=== PATIENT | female | born 1965 | race Caucasian/White ===

== ENCOUNTER 2018-08-24 08:49 | Inpatient (IN) | payer OTHER ==
[2018-08-24] MEDS ORDERED: Sodium Chloride 0.9% 1,000 ML IV ONE ×3 (09:07→23:39)
[2018-08-24] MEDS ORDERED: Morphine Sulfate 4 mg/mL 1mL Syr IV STA (09:08)
--- NOTE | 2018-08-24 09:15 | ED Physician Chart ---
ED Chief Complaint/HPI - Patient Information Date Seen:: 08/24/18 Time Seen:: 09:00 Chief Complaint:: lower abdominal pain History of Present Illness:: Patient developed lower abdominal pain last night at 1900. No vomiting or diarrhea. Patient was started on Keflex 5 days ago for cystitis. She developed increased vaginal discharge 2 days ago which is now improved. Allergies:: Allergies Allergy/AdvReac Type Severity Reaction Status Date / Time codeine Allergy Verified 08/24/18 08:59 Vitals:: Vital Signs - 8 hr 08/24/18 09:00 Temp 99.5 F HR 97 RR 17 BP 140/80 O2 Sat % 97 Historian:: Patient Review:: Nurse's Note Reviewed ED Review of Systems - Review of Systems General/Constitutional: No fever, No chills Skin: No skin lesions Head: No headache Eyes: No loss of vision ENT: No earache Neck: No neck pain, No swelling Cardio Vascular: No chest pain, No palpitations Pulmonary: No SOB GI: No nausea, No vomiting, No diarrhea, Pain G/U: Dysuria Life Skills Specialist: Vaginal discharge Musculoskeletal: No bone or joint pain, No back pain, No muscle pain Psychiatric: No prior psych history Hematopoietic: No bruising Allergic/Immuno: No urticaria Neurological: No syncope, No focal symptoms ED Past Medical History - Past Medical History Past Medical History: No significant medical hx Family History: Diabetes Melitus, HTN Social History: Non Smoker, No Alcohol Surgical History: None Psychiatricy History: None Medication: Reviewed ED Physical Exam - Physical Examination General/Constitutional: Well-developed, well-nourished, Alert, No distress Head: Atraumatic Eyes: Lids, conjuctiva normal, PERRL Skin: Nl inspection, No rash, No skin lesions, No ecchymosis ENMT: External ears, nose nl, Nasal exam nl, Lips, teeth, gums nl, Oropharynx nl , Tonsils nl Neck: No nuchal rigidity Respiratory: Nl effort/Exclusion, Clear to Auscultation Cardio Vascular: RRR, No murmur, gallop, rubs, NL S1 S2 GI: No organomegaly, No hernia, Normal BS's, Nondistended, No mass/bruits Other GI comments:: Diffuse tenderness Extremities: Normal digits & nails Neuro/Psych: Alert/oriented, No focal deficits ED Labs/Radiology/EKG Results - Lab Results Results: Laboratory Results WBC 13.6 Th/cmm (4.8-10.8) H 08/24/18 09:15 RBC 4.31 Mil/cmm (3.80-5.10) 08/24/18 09:15 Hgb 8.9 gm/dL (12-16) L 08/24/18 09:15 Hct 28.8 % (41.0-60) L 08/24/18 09:15 MCV 66.7 fl (81-100) L 08/24/18 09:15 MCH 20.6 pg (27.0-31.0) L 08/24/18 09:15 MCHC Differential 30.9 pg (28.0-36.0) 08/24/18 09:15 RDW 16.9 % (11.5-20.0) 08/24/18 09:15 Plt Count 664 Th/cmm (150-400) H 08/24/18 09:15 MPV 7.2 fl 08/24/18 09:15 Add Manual Diff YES 08/24/18 09:15 Band Neutrophils % 0 % (0-10) 08/24/18 09:15 Neutrophils (Manual) 85 % (40-80) H 08/24/18 09:15 Lymphocytes 11 % (20-50) L 08/24/18 09:15 Monocytes 4 % (2-10) 08/24/18 09:15 Eosinophils 0 % (0-5) 08/24/18 09:15 Basophils 0 % (0-3) 08/24/18 09:15 Platelet Estimate INCREASED PLATELETS (NORMAL) 08/24/18 09:15 Sodium 143 mEq/L (136-145) 08/24/18 09:15 Potassium 3.9 mEq/L (3.5-5.1) 08/24/18 09:15 Chloride 109 mEq/L (98-107) H 08/24/18 09:15 Carbon Dioxide 22.1 mEq/L (21.0-31.0) 08/24/18 09:15 Anion Gap 15.8 (7.0-16.0) 08/24/18 09:15 BUN 19 mg/dL (7-25) 08/24/18 09:15 Creatinine 0.7 mg/dL (0.6-1.2) 08/24/18 09:15 Est GFR ( Amer) > 60.0 ml/min (>90) 08/24/18 09:15 Est GFR (Non-Af Amer) > 60.0 ml/min 08/24/18 09:15 BUN/Creatinine Ratio 27.1 08/24/18 09:15 Glucose 117 mg/dL (70-105) H 08/24/18 09:15 Calcium 8.8 mg/dL (8.6-10.3) 08/24/18 09:15 Magnesium 2.1 mg/dL (1.9-2.7) 08/24/18 09:15 Lipase 12 U/L (11-82) 08/24/18:15 Urine Source MIDSTREAM 08/24/18 09:00 Urine Color YELLOW 08/24/18 09:00 Urine Clarity CLOUDY (CLEAR) H 08/24/18 09:00 Urine pH 6.0 (4.6 - 8.0) 08/24/18 09:00 Ur Specific [place] >= 1.030 (1.005-1.030) 08/24/18 09:00 Urine Protein 100 mg/dL (NEGATIVE) H 08/24/18 09:00 Urine Glucose (UA) NEGATIVE mg/dL (NEGATIVE) 08/24/18 09:00 Urine Ketones NEGATIVE mg/dL (NEGATIVE) 08/24/18 09:00 Urine Blood MODERATE (NEGATIVE) H 08/24/18 09:00 Urine Nitrate NEGATIVE (NEGATIVE) 08/24/18 09:00 Urine Bilirubin NEGATIVE (NEGATIVE) 08/24/18 09:00 Urine Urobilinogen 0.2 E.U./dL (0.2 - 1.0) 08/24/18 09:00 Ur Leukocyte Esterase MODERATE (NEGATIVE) H 08/24/18 09:00 Urine RBC 5-10 /hpf (0-5) H 08/24/18 09:00 Urine WBC 50-100 /hpf (0-5) H 08/24/18 09:00 Ur Epithelial Cells FEW /lpf (FEW) 08/24/18 09:00 Urine Bacteria MODERATE /hpf (NONE SEEN) H 08/24/18 09:00 - Radiology Results Results: CT abdomen and pelvis showed a 20 by 17.6 centimeter pelvic mass probably a large fibroid. The pelvic ultrasound showed a markedly enlarged fibroid uterus. ED Assessment - Assessment General Assessment: I spoke to the french binding folder environmental health technologist for the patient's insurance Dr. Gerard who said she would see if there is an PSYCHODRAMATIST doctor available. So she will accept the patient in transfer. Finally we heard that the patient was accepted to [facility] so I assume Dr. Gerard determined that she could get an OB /VICE PRESIDENT RESIDENTIAL SOLAR SALES doctor to see the patient. ED Septic Shock - . Is Septic Shock (SBP<90, OR Lactate>4 mmol\L) present?: No - <6hrs of presentation: Vital Signs: Vital Signs - 8 hr 08/24/18 09:00 Temp 99.5 F HR 97 RR 17 BP 140/80 O2 Sat % 97 ED Reassessment (Disposition) - Reassessment Reassessment Condition:: Unchanged - Diagnosis Diagnosis:: Leukocytosis; anemia; uterine fibroids; abdominal pain - Patient Disposition Discharge/Transfer:: Acute Care (other hosp) Transport Method:: PRITESH Spoke to:: Dr. Gerard
[2018-08-24 09:20] LABS: URINE SOURCE MIDSTREAM
[2018-08-24 09:38] LABS: URINE BILIRUBIN NEGATIVE (NEGATIVE); URINE BLOOD MODERATE (NEGATIVE); URINE GLUCOSE (UA) NEGATIVE (NEGATIVE); URINE KETONE NEGATIVE (NEGATIVE); URINE LEUKOCYTE ESTERASE MODERATE (NEGATIVE); URINE MICROSCOPIC INDICATED? YES; URINE NITRATE NEGATIVE (NEGATIVE); URINE PROTEIN 100 mg/dL (NEGATIVE); URINE UROBILINOGEN 0.2 E.U./dL (0.2 - 1.0)
[2018-08-24 09:45] LABS: ANION GAP 15.8 (7.0-16.0); BUN - UREA NITROGEN 19 mg/dL (7-25); CALCIUM SERUM 8.8 mg/dL (8.6-10.3); CARBON DIOXIDE 22.1 mEq/L (21.0-31.0); CHLORIDE 109 mEq/L (98-107); CREATININE - SERUM 0.7 mg/dL (0.6-1.2); GFR AFRICAN-AMERICAN > 60.0 ml/min (>90); GFR NON AFRICAN-AMERICAN > 60.0 ml/min; GLUCOSE 117 mg/dL (70-105); MAGNESIUM 2.1 mg/dL (1.9-2.7); POTASSIUM SERUM 3.9 mEq/L (3.5-5.1); SODIUM SERUM 143 mEq/L (136-145)
[2018-08-24 09:51] LABS: HEMOGLOBIN 8.9 gm/dL (12-16)
[2018-08-24 09:57] LABS: HEMATOCRIT 28.8 % (41.0-60); MEAN CORPUSCULAR HEMOGLOBIN 20.6 pg (27.0-31.0); MEAN CORPUSCULAR HGB CONC 30.9 pg (28.0-36.0); MEAN PLATELET VOLUME 7.2 fl; PLATELET COUNT 664 Th/cmm (150-400); RED BLOOD COUNT 4.31 Mil/cmm (3.80-5.10); RED CELL DISTRIBUTION WIDTH 16.9 % (11.5-20.0); WHITE BLOOD COUNT 13.6 Th/cmm (4.8-10.8)
[2018-08-24 10:07] LABS: MEAN CELL VOLUME 66.7 fl (81-100)
[2018-08-24 10:24] LABS: URINE CLARITY CLOUDY (CLEAR); URINE COLOR YELLOW
--- NOTE | 2018-08-24 10:29 | Diagnostic Imaging Report ---
CT abdomen and pelvis without intravenous contrast Indication: Abdominal pain Comparison: None, Technique: Axial images were obtained from the lung bases to the bilateral proximal femurs without IV contrast. Coronal reconstructions were made. total DLP: 605, CTDI12.1 FINDINGS: Hypoventilatory atelectatic changes of the lung bases are noted. Assessment of solid organs is limited due to lack of IV contrast. Mild hepatomegaly is noted. No focal hepatic lesions. No focal splenic lesions. No focal pancreatic or adrenal lesions. No evidence of hydronephrosis or focal renal lesions. There is a very large heterogeneous mass within the pelvis with mass effect upon the regional organs and. This mass measures 20.0 x 17.6 cm and is probably a large fibroid with a extension to the left lateral abdomen. No evidence of bowel obstruction. Moderate stool is noted. No appendicitis. Trace free fluid is noted. Mild prominent pelvic lymph nodes are noted the largest along the right posterior pelvis measuring 1.8 x 1.4 cm (image 74, series 2). Additional mildly prominent left or peritoneal lymph nodes are also noted the largest measuring 1.5 x 1.0 cm (image 49, series 2). Minimal atherosclerosis is noted. Degenerative changes of the spine and pelvis are noted. IMPRESSION: Large pelvic mass probably a large multilobulated fibroid with heterogeneous areas of density. Consider further assessment with ultrasound. Associated mass effect upon the adjacent organs are noted. Mildly surrounding prominent lymph nodes including retroperitoneal and pelvic lymph nodes. Follow-up surveillance is recommended. No evidence of bowel obstruction. Trace fluid in the pelvis. No evidence of acute appendicitis Mild hepatomegaly. Minimal atherosclerosis.
[2018-08-24 10:41] LABS: URINE BACTERIA MODERATE /hpf (NONE SEEN); URINE EPITHELIAL CELLS FEW /lpf (FEW); URINE WBC 50-100 /hpf (0-5)
[2018-08-24 10:55] LABS: BAND NEUTROPHILE 0 % (0-10); BASOPHIL 0 % (0-3); EOSINOPHIL 0 % (0-5); LYMPHOCYTE 11 % (20-50); MONOCYTE 4 % (2-10); NEUTROPHILS 85 % (40-80); PLATELET ESTIMATE INCREASED PLATELETS (NORMAL)
[2018-08-24] MEDS ORDERED: cefTRIAXone 1 GM in Sodium Chloride 0.9% 50 ML IV ONE (11:08)
[2018-08-24] MEDS ORDERED: HYDROmorphone 1 mg/mL 1mL Syr IVP STA ×3 (11:18→22:23)
[2018-08-24] MEDS ORDERED: HYDROmorphone 1 mg/mL 1mL Syr ONE ×3 (11:26→22:25)
--- NOTE | 2018-08-24 12:14 | Diagnostic Imaging Report ---
Ultrasound pelvis HISTORY: Mass, patient is menopausal COMPARISON: CT abdomen and pelvis the same day Technique: Longitudinal and transverse sonographic sector images of the pelvis were obtained transabdominally and transvaginally. FINDINGS: The uterus is markedly enlarged and heterogeneous measuring 18.6 x 14.8 x 11.2 cm. Endometrial complex is not well identified on this exam. There is a left-sided peduncle related fibroid measuring 7.4 x 8.5 cm. There is also large mass along the uterine body measuring 11.6 x 10.9 cm. The ovaries are not visualized. No gross free fluid identified. IMPRESSION: Markedly enlarged fibroid uterus. The the endometrial echo complex and ovaries are not visualized.
[2018-08-25 01:18] VITALS: BP 150/78
[2018-08-25] MEDS: Morphine Sulfate 2 mg/mL 1mL Syr IVP PRN ×4 (01:30→09:16)
[2018-08-25] MEDS ORDERED: Levofloxacin 500mg/100mL 500 MG/100 ML BAG IV SCH ×2 (02:30→10:00)
[2018-08-25 05:53] LABS: HEMATOCRIT 26.9 % (41.0-60); HEMOGLOBIN 8.5 gm/dL (12-16); MEAN CORPUSCULAR HEMOGLOBIN 21.3 pg (27.0-31.0); MEAN CORPUSCULAR HGB CONC 31.7 pg (28.0-36.0); MEAN PLATELET VOLUME 7.3 fl; RED BLOOD COUNT 4.01 Mil/cmm (3.80-5.10); RED CELL DISTRIBUTION WIDTH 16.6 % (11.5-20.0)
[2018-08-25 07:18] LABS: BAND NEUTROPHILE 1 % (0-10); LYMPHOCYTE 20 % (20-50); MONOCYTE 6 % (2-10); NEUTROPHILS 73 % (40-80)
[2018-08-25 07:21] LABS: PLATELET MORPHOLOGY NORMAL (NORMAL)
[2018-08-25 07:42] LABS: PLATELET ESTIMATE INCREASED PLATELETS (NORMAL)
[2018-08-25 07:44] LABS: WHITE BLOOD COUNT 16.3 Th/cmm (4.8-10.8)
[2018-08-25 07:45] LABS: BASOPHIL 0 % (0-3); EOSINOPHIL 0 % (0-5)
[2018-08-25 08:27] LABS: ANION GAP 15.5 (7.0-16.0); BUN - UREA NITROGEN 15 mg/dL (7-25); CALCIUM SERUM 8.3 mg/dL (8.6-10.3); CHLORIDE 106 mEq/L (98-107); CREATININE - SERUM 0.6 mg/dL (0.6-1.2); GFR AFRICAN-AMERICAN > 60.0 ml/min (>90); GFR NON AFRICAN-AMERICAN > 60.0 ml/min; GLUCOSE 112 mg/dL (70-105); POTASSIUM SERUM 3.5 mEq/L (3.5-5.1); SODIUM SERUM 138 mEq/L (136-145)
[2018-08-25 12:09] LABS: PLATELET COUNT 603 Th/cmm (150-400)
[2018-08-25 12:17] LABS: MEAN CELL VOLUME 67.1 fl (81-100)
[2018-08-25 13:09] LABS: HEMOGLOBIN 10.7 gm/dL (12-16)
[2018-08-25 13:12] LABS: HEMATOCRIT 33.4 % (41.0-60)
--- NOTE | 2018-08-25 13:56 | Consultation ---
Consult Note - Consult Note Service Date: 08/25/18 Referring Physician: Sheri Fischer Consult Note: PHYSICIAN Consultation Note: Date of Admission: 08/24/18 Purpose of Consultation: Leukocytosis and abdominal pain Chief Complaint: Patient MARCIA GALEANA was admitted to [facility] with ANEMIA, LEUKOCYTOSIS, UTI. History of Present Illness: 53-year-old female presented to the hospital for the lower abdominal pain. On this evaluation, she was febrile. She called 16,000. Hemoglobin was 8.5. CT scan of the abdomen and pelvis showed large fibroid mass with mass effect on the adjoining orga.. ID consult was called for antibiotic management. Meanwhile, she was started on Levaquin. Past Medical History: Nonsignificant. Allergies Allergy/AdvReac Type Severity Reaction Status Date / Time codeine Allergy Verified 08/24/18 08:59 Vital Signs Temp 100.3 F 08/25/18 11:54 Pulse 88 08/25/18 11:54 Resp 19 08/25/18 13:00 BP 141/74 08/25/18 11:54 Pulse Ox 98 08/25/18 11:54 Intake & Output 08/24/18 08/25/18 08/25/18 18:59 06:59 18:59 Intake Total 344.167 123.333 Balance 344.167 123.333 Weight (lbs) 81.647 kg Intake: Intake, IV Amount 344.167 123.333 Levofloxacin 500mg/100mL 100 500 mg In 100 ml @ 100 mls/hr IV Q24H [facility] Rx#: [id number] Sodium Chloride 0.9% 1, 344.167 23.333 000 ml @ 50 mls/hr IV . Q20H ONE Rx#:[id number] Other: Weight Source Patient stated Laboratory Results - last 24 hr 08/24/18 08/25/18 08/25/18 23:30 05:25 05:25 WBC 16.3 H Corrected WBC (auto) TNP RBC 4.01 Hgb 8.5 L Hct 26.9 L MCV 67.1 L MCH 21.3 L MCHC Differential 31.7 RDW 16.6 Plt Count 603 H MPV 7.3 Add Manual Diff YES Neutrophils % SYSTEMS MGR Band Neutrophils % 1 Lymphocytes % SYSTEMS MGR Monocytes % SYSTEMS MGR Eosinophils % SYSTEMS MGR Basophils % SYSTEMS MGR Neutrophils (Manual) 73 Lymphocytes 20 Monocytes 6 Eosinophils 0 Basophils 0 Platelet Estimate INCREASED PLATELETS Platelet Morphology NORMAL RBC Morph Micro Appear NORMAL Smear Path Review Sodium 138 Potassium 3.5 Chloride 106 Carbon Dioxide 20.0 L Anion Gap 15.5 BUN 15 Creatinine 0.6 Est GFR ( Amer) > 60.0 Est GFR (Non-Af Amer) > 60.0 BUN/Creatinine Ratio 25.0 Glucose 112 H Calcium 8.3 L TSH Blood Type A POSITIVE Antibody Screen NEGATIVE Crossmatch See Detail 08/25/18 08/25/18 05:25 13:05 WBC Corrected WBC (auto) RBC Hgb 10.7 L Hct 33.4 L D MCV MCH MCHC Differential RDW Plt Count MPV Add Manual Diff Neutrophils % Band Neutrophils % Lymphocytes % Monocytes % Eosinophils % Basophils % Neutrophils (Manual) Lymphocytes Monocytes Eosinophils Basophils Platelet Estimate Platelet Morphology RBC Morph Micro Appear Smear Path Review Sodium Potassium Chloride Carbon Dioxide Anion Gap BUN Creatinine Est GFR ( Amer) Est GFR (Non-Af Amer) BUN/Creatinine Ratio Glucose Calcium TSH 2.66 Blood Type Antibody Screen Crossmatch Home Medication Medication Instructions Recorded Type Cephalexin [Keflex] 500 mg PO BID 08/24/18 History Current Medications Generic Name Dose Route Start Last Admin Trade Name Freq PRN Reason Stop Dose Admin Acetaminophen 650 mg 08/25/18 11:42 08/25/18 12:13 Tylenol PO 10/24/18 11:41 650 mg Q4H PRN Administration Fever > 101 Acetaminophen 650 mg 08/25/18 11:43 Tylenol PO 10/24/18 11:42 Q6H PRN Pain (Mild) Sodium Chloride 1,000 mls @ 50 mls/hr 08/24/18 23:39 08/25/18 07:08 Nacl 0.9% IV 08/25/18 19:30 0 mls/hr .Q20H ONE Infusion Levofloxacin 500 mg in 100 mls @ 100 mls/hr 08/25/18 10:00 08/25/18 10:20 Levaquin Pb IV 10/24/18 09:59 Infused Q24H MADDI Infusion Morphine Sulfate 1 mg 08/24/18 23:39 08/25/18 06:43 Morphine IVP 10/23/18 23:38 1 mg Q4HR PRN Administration Pain (Moderate) Morphine Sulfate 2 mg 08/25/18 03:16 08/25/18 09:16 Morphine IVP 10/24/18 03:15 2 mg Q4HR PRN Administration Pain (Severe) Review of Systems: A 12 point ROS was reviewed with the pertinent positive and negatives noted in the HPI. Social History Smoking Status Former smoker Family Medical History Unknown. Physical Exam: General: HEENT: Neck: Cardio: Respiratory: Abdominal: Genital/Urinary: Extremities: Neurological: Assessment: Plan: Signed, Montrell Gaxiola M.D. 08/[id number]
--- NOTE | 2018-08-25 15:07 | History & Physical ---
ADMIT DATE: 08/25/2018 REFERRING PHYSICIAN: Dr. Fischer. REASON FOR CONSULTATION: Anemia and uterine fibroids. HISTORY OF PRESENT ILLNESS: The patient is a 53-year-old female who presented to the hospital with lower abdominal pain and she was found to have large fibroids and pelvic ultrasound and anemia with hemoglobin of 8.5, transfusion was ordered and I was asked to evaluate. The patient stated that she has been having lower pelvic pain for the past 1 week. She did not have vaginal bleeding or rectal bleeding that she knows of. She never had colonoscopy in the past. She is not aware of the uterine fibroid diagnosis before that. PAST MEDICAL HISTORY: No chronic medical problems. SOCIAL HISTORY: No smoking or drinking. PAST SURGICAL HISTORY: None. MEDICATIONS: She is currently on Levaquin and she received ceftriaxone and she is on narcotics for pain management. FAMILY HISTORY: No malignancy. PHYSICAL EXAMINATION: GENERAL: Awake, alert, oriented. VITAL SIGNS: Temperature 98.3, blood pressure 132/70, saturation 98% on room air. HEENT: Pale complexion. NECK: Supple. No supraclavicular or axillary lymphadenopathy. CHEST: Clear. ABDOMEN: Fullness with no guarding or rebound. EXTREMITIES: No edema. NERVOUS SYSTEM: Nonfocal. LABORATORY DATA: White count 16.3, hemoglobin 8.5, MCV from admission 66, platelets 603. Chemistry: Creatinine 0.6. TSH 2.6. Reviewing the imaging and the pelvic ultrasound and abdominal CT scan and pelvic CT scan reported uterine fibroids and pelvic enlarged lymph nodes in addition to retroperitoneal lymph nodes. ASSESSMENT: 1. The uterine mass suggestive of fibroids in addition to mildly prominent lymph nodes in the peritoneum and pelvis. Will need to be evaluated by a radio station engineer to rule out uterine malignancy. 2. Anemia with microcytic index most likely iron deficiency. I will obtain iron studies. 3. Elevated white count and platelets, most likely reactive to urinary tract infection, which is being treated with antibiotics. Thank you Dr. Fischer for the opportunity to participate in the care of this interesting case. JOB# [id number]
--- NOTE | 2018-08-25 16:44 | History & Physical ---
ADMIT DATE: 08/25/2018 HISTORY OF PRESENT ILLNESS: The patient is an elderly female patient who is in her 50s. The patient came to the Emergency Room complaining of lower abdominal pain, vaginal bleeding, looked very pale and the patient was also complaining of some dysuria. The patient was found to have UTI, anemia and was admitted. PAST MEDICAL HISTORY: History of hypertension and diabetes in the family. No significant history. REVIEW OF SYSTEMS: The patient's system review is negative except for the generalized weakness and pallor. PHYSICAL EXAMINATION: GENERAL: Looked very pale. HEAD: Normal. ENT: Normal. NECK: Supple, nontender. LUNGS: Clear. CARDIOVASCULAR SYSTEM: S1, S2 heard. ABDOMEN: Lower abdominal tenderness noted. LABORATORY DATA: Hemoglobin was 8.1 and the patient's CAT scan showed a large fibroid. ASSESSMENT AND PLAN: The patient was admitted for acute abdominal pain, urinary tract infection, uterine fibroid. I will go ahead and transfuse the blood and I will have ID doctor see the patient and then I will refer her to the OB-PLATE KEEPER. JOB# [id number]
[2018-08-25] MEDS ORDERED: Amoxicillin/Clavulanate 500/125 Tab PO SCH (17:00)
--- NOTE | 2018-08-25 17:30 | History and Physical ---
History of Present Illness - HPI Chief Complaint: Patient complaints of Lower abdominal pain and vaginal discharge. HPI: CARITO MALLOY MD HISTORY AND PHYSICAL [place] : 1965 Admit date: 08/24/2018. Date: 08/24/2018. Chief complaint Patient was admitted to [facility] due to complaints of Lower abdominal pain and vaginal discharge. Present illness 53 y/o female patient was admitted to [facility] due to complaints of Lower abdominal pain and vaginal discharge. Patient has no significant past medical history. Patient had an ID consult and a complete workup was done. Patient's hemoglobin was low at 8. Patient had an Abdominal Ultrasound Enlarged Uterine Fibroids and CT of the abdomen and pelvis which showed Enlarged Uterine Fibroids. Patient was diagnosed with Leukocytosis, Anemia, Urinary Tract Infection, Uterine Fibroids and Abdominal Pain. Patient is being treated with antibiotics and is being monitored. Patient was transferred here on August for continuation of care. Review of systems Vitals: Reviewed. General: Normotensive, in no acute distress. Head: Normocephalic, no lesions. Eyes: PERRLA, EOM'S full, conjunctive clear, fundi grossly normal. Neck: Supple, no masses, no thyromegaly, no bruits. Lungs: Bilateral breath sounds, No Rhonchi or wheezing noted. Heart: RR, no murmurs, no rubs, no gallops. Abdomen: Soft, no tenderness, no masses, BS normal. Musculoskeletal: No joint pain, No edema noted. Psych: Normal mood and affect. Skin: No rash or skin lesions noted. Neurological: Denies headache and loss of consciousness. Past medical history None per patient. Past surgical history None per patient. Medications Please refer to medication reconciliation sheet. Allergies Allergic to Codeine. Family history Family History of Diabetes Mellitus and Hypertension. Social history Current smoker, No Alcohol use, No drug abuse. Physical Exam- HEENT: Head is normocephalic, atraumatic. NECK: Supple. No JVD. No carotid bruit. CHEST: Bilateral breath sounds. No crackles. No wheezing. HEART: S1, S2 within normal limits. Regular rhythm. No murmur. No gallop. ABDOMEN: Abdominal tenderness. EXTREMITIES: No joint enlargement, No swelling or tenderness. NEUROLOGIC: Alert oriented x 3. Assessment and Impression Leukocytosis. Anemia, Iron Deficiency. Urinary Tract Infection. Uterine Fibroids. Abdominal Pain. Plan Continuation of care. Monitor labs, Hemoglobin levels. Continue present Antibiotics meds and Pain meds as directed. Monitor Diet/Nutritional support. Refer to Director Advertising for evaluation/Rule out Uterine malignancy. Will Monitor patient and continue current treatment plan as ordered. Vital Signs: Last Vital Signs Temp 98.5 F 08/25/18 16:20 Pulse 85 08/25/18 16:20 Resp 18 08/25/18 16:20 BP 126/78 08/25/18 16:20 Pulse Ox 98 08/25/18 16:20 Past Medical History Cardiovascular: Report: No Pertinent Hx Pulmonary: Report: No Pertinent Hx SUB[employer] NURSE: Report: No Pertinent Hx GI: Report: Other (Positive for abdonial pain.) Psych: Report: No Pertinent Hx Musculoskeletal: Report: No Pertinent Hx Rheumatologic: Report: No pertinent Hx Infectious Disease: Report: No Pertinent Hx Renal/: Report: UTI Family Medical History - Family Member Mother History Unknown: Yes Family history History Unknown: Yes (Diabetes Mellitus and Hypretension.) Ethnicity: Unknown Living Status: Still Living Hx Family Cancer: No Hx Family Coronary Artery Disease: No Hx Family Congestive Heart Failure: No Hx Family Hypertension: Yes Hx Family Stroke: No Hx Family Diabetes: Yes Hx Family Seizures: No Hx Family Dementia: No Hx Family AIDS: No Hx Family HIV: No Hx Family COPD: No Hx Family Hepatitis: No Hx Family Psychiatric Problems: No Hx Family Tuberculosis: No Social History Smoke: <1 pack per day (Current smoker) Alcohol: None Drugs: None Lives: Other Domestic Violence: Negative Health Maintenance Health Maintenance: Other (No History) - Medications Home Medications: Home Medication Medication Instructions Recorded Type Cephalexin [Keflex] 500 mg PO BID 08/24/18 History Amoxicillin/Clavulanat [Augmentin 1 tab PO BID 10 Days #20 tab 08/25/18 Rx 500-125mg] - Allergies Allergies/Adverse Reactions: Allergies Allergy/AdvReac Type Severity Reaction Status Date / Time codeine Allergy Verified 08/24/18 08:59 Review of Systems - Review of Systems Constitutional: Report: No Significant Eyes: Report: No Significant ENT: Report: No Significant Respiratory: Report: No Significant Cardiovascular: Report: No Significant Gastrointestinal: Report: Abdominal Pain Genitourinary: Report: Dysuria Musculoskeletal: Report: No Significant Skin: Report: No Significant Neurological: Report: No Significant Physical Exam - Physical Exam HEENT: Report: Ears Nose Throat within normal limits, Pharnyx within normal limits Neck: Report: Within normal limits Cardiovascular Systems: Report: Regular, Rate and Rhythm Respiratory: Report: Breath Sounds are within normal limits Abdomen: Report: Tender to palpation Back: Report: Inspection of back is within normal limits. Extremities: Report: Non-tender to palpation. Skin: Report: Color of skin is within normal limits Neuro/Psych: Report: Mood affect is within normal limits - Lab Results All Lab Results last 24 hours: Laboratory Results - last 24 hr 08/24/18 08/25/18 08/25/18 23:30 05:25 05:25 WBC 16.3 H Corrected WBC (auto) TNP RBC 4.01 Hgb 8.5 L Hct 26.9 L MCV 67.1 L MCH 21.3 L MCHC Differential 31.7 RDW 16.6 Plt Count 603 H MPV 7.3 Add Manual Diff YES Neutrophils % SUMAC TANNER Band Neutrophils % 1 Lymphocytes % SUMAC TANNER Monocytes % SUMAC TANNER Eosinophils % SUMAC TANNER Basophils % SUMAC TANNER Neutrophils (Manual) 73 Lymphocytes 20 Monocytes 6 Eosinophils 0 Basophils 0 Platelet Estimate INCREASED PLATELETS Platelet Morphology NORMAL RBC Morph Micro Appear NORMAL Smear Path Review Sodium 138 Potassium 3.5 Chloride 106 Carbon Dioxide 20.0 L Anion Gap 15.5 BUN 15 Creatinine 0.6 Est GFR ( Amer) > 60.0 Est GFR (Non-Af Amer) > 60.0 BUN/Creatinine Ratio 25.0 Glucose 112 H Calcium 8.3 L TSH Blood Type A POSITIVE Antibody Screen NEGATIVE Crossmatch See Detail 08/25/18 08/25/18 05:25 13:05 WBC Corrected WBC (auto) RBC Hgb 10.7 L Hct 33.4 L D MCV MCH MCHC Differential RDW Plt Count MPV Add Manual Diff Neutrophils % Band Neutrophils % Lymphocytes % Monocytes % Eosinophils % Basophils % Neutrophils (Manual) Lymphocytes Monocytes Eosinophils Basophils Platelet Estimate Platelet Morphology RBC Morph Micro Appear Smear Path Review Sodium Potassium Chloride Carbon Dioxide Anion Gap BUN Creatinine Est GFR ( Amer) Est GFR (Non-Af Amer) BUN/Creatinine Ratio Glucose Calcium TSH 2.66 Blood Type Antibody Screen Crossmatch - Assessment Assessment: Leukocytosis. Anemia. Urinary Tract infection. Uterine Fibroids. Abdominal pain. . - Plan Plan: Continuation of care. Monitor labs, Hemoglobin levels. Continue present Antibiotics meds and Pain meds as directed. Monitor Diet/Nutritional support. Refer to Director Advertising for evaluation/Rule out Uterine malignancy. Will Monitor patient and continue current treatment plan as ordered.
[2018-08-26 10:19] LABS: FERRITIN 197 ng/mL (15-150); FOLIC ACID >20.0 ng/mL (>3.0); IRON LC 13 ug/dL (27-159); TIBC (LC) 179 ug/dL (250-450); UIBC 166 ug/dL (131-425)
--- NOTE | 2018-08-27 12:42 | Discharge Summary ---
DATE OF DISCHARGE: 08/25/2018 The patient was admitted at [facility], came in for lower abdominal pain and was complaining of vaginal bleeding and found to have severe anemia and also possible fibroid in the uterus. The patient also had a UTI. The patient was treated for UTI, was given a blood transfusion. The patient improved, discharged in stable condition on of discharge, advised to see her doctor in 2 days and follow up with me in 1 week and the patient's condition at time of discharge was stable. The patient was given a prescription for iron pills, pain medications, and importance of going to the BOAT PAINTER doctor for fibroid uterus and possible surgery. CONDITION AT THE TIME OF DISCHARGE: Stable. JOB# [id number]
[2019-08-25] MEDS ORDERED: Levofloxacin 500mg/100mL 500 MG/100 ML BAG IV SCH
== END 2018-08-25 16:30 | disposition home or self-care (01) | DRG 872 ==
LOC: ER 08:49 → TELE 22:11
PROVIDERS: ADMIT Internal Medicine; ATTEND Internal Medicine
PROC: 30233N1 Transfusion of Nonautologous Red Blood Cells into Peripheral Vein, Percutaneous Approach (ICD-10-PCS; principal; 2018-08-25)
DX: A41.9 Sepsis, unspecified organism (principal); N39.0 Urinary tract infection, site not specified; N93.9 Abnormal uterine and vaginal bleeding, unspecified; D25.9 Leiomyoma of uterus, unspecified; D64.9 Anemia, unspecified; D50.9 Iron deficiency anemia, unspecified; F17.210 Nicotine dependence, cigarettes, uncomplicated; Z79.899 Other long term (current) drug therapy; Z88.5 Allergy status to narcotic agent; Z83.3 Family history of diabetes mellitus; Z82.49 Family history of ischemic heart disease and other diseases of the circulatory system
CPT/HCPCS: 36415-UA; 76856-TC; 80048-TC; 81001-TC; 82607-90; 82728-90; 82746-90; 83540-90; 83550-90; 83690-TC; 83735-TC; 84443-TC; 85007-TC; 85014-TC; 85018-TC; 85025-TC; 86850-TC; 86900-TC; 86901-TC; 86922-TC; 87086-90; 96375; J0696; J1170; J1956; J2270; J7030; J7040; P9016; Z7610

== ENCOUNTER 2018-10-21 22:13 | Emergency (ER) | payer OTHER ==
--- NOTE | 2018-10-21 22:47 | ED Physician Chart ---
ED Chief Complaint/HPI - Patient Information Date Seen:: 10/21/18 Time Seen:: 22:43 Chief Complaint:: unsble to urinate History of Present Illness:: 53 yr old female with fibroids and trouble urimation Allergies:: Allergies Allergy/AdvReac Type Severity Reaction Status Date / Time codeine Allergy Severe Verified 10/21/18 22:37 Vitals:: Vital Signs - 8 hr 10/21/18 22:28 Temp 98.6 F HR 93 RR 27 BP 111/65 O2 Sat % 98 ED Review of Systems - Review of Systems Skin: No skin lesions Head: No headache Eyes: No loss of vision ED Past Medical History - Past Medical History Past Medical History: Other (uterine fibroids) Family History: None Family Medical History - Family Member Mother History Unknown: Yes Family history History Unknown: Yes (Diabetes Mellitus and Hypretension.) Ethnicity: Unknown Living Status: Still Living Hx Family Cancer: No Hx Family Coronary Artery Disease: No Hx Family Congestive Heart Failure: No Hx Family Hypertension: Yes Hx Family Stroke: No Hx Family Diabetes: Yes Hx Family Seizures: No Hx Family Dementia: No Hx Family AIDS: No Hx Family HIV: No Hx Family COPD: No Hx Family Hepatitis: No Hx Family Psychiatric Problems: No Hx Family Tuberculosis: No ED Physical Exam - Physical Examination General/Constitutional: Awake Head: Atraumatic Eyes: Lids, conjuctiva normal, PERRL, EOMI Skin: Nl inspection, No rash, No skin lesions, No ecchymosis, Well hydrated, No lymphadenopathy ENMT: External ears, nose nl, Nasal exam nl, Lips, teeth, gums nl Neck: Nontender, Full ROM w/o pain, No JVD, No nuchal rigidity, No bruit, No mass, No stridor Respiratory: Nl effort/Exclusion, Clear to Auscultation, No Wheeze/Rhonchi/Rales Cardio Vascular: RRR, No murmur, gallop, rubs, NL S1 S2 GI: No hernia, Normal BS's, No McBurney tenderness Other GI comments:: much suprabuic pain : No CVA tenderness Other comments:: suprapubic fullness Extremities: No tenderness or effusion, Full ROM, normal strength in all extremities, No edema, Normal digits & nails Neuro/Psych: Alert/oriented, DTR's symmetric, Normal sensory exam, Normal motor strength, Judgement/insight normal, Mood normal, Normal gait, No focal deficits Misc: Normal back, No paraspinal tenderness ED Assessment - Assessment General Assessment: abd pain ED Septic Shock - . Is Septic Shock (SBP<90, OR Lactate>4 mmol\L) present?: No - <6hrs of presentation: Vital Signs: Vital Signs - 8 hr 10/21/18 22:28 Temp 98.6 F HR 93 RR 27 BP 111/65 O2 Sat % 98 ED Reassessment (Disposition) - Reassessment Reassessment:: abd pain suprapubic fullness - Diagnosis Diagnosis:: as above - Aftercare/Follow up Instructions Aftercare/Follow-Up Instructions:: Counseled pt regarding lab results/diagnosis & need follow up - Patient Disposition Discharge/Transfer:: Home Condition at Disposition:: Stable
[2018-10-21 23:33] LABS: % BASOPHILS 0.7 % (0.0-2.0); % EOSINOPHILS 0.4 % (0.0-5.0); % LYMPHOCYTES 13.8 % (20.0-50.0); % MONOCYTES 2.9 % (2.0-10.0); % NEUTROPHILS 82.2 % (40.0-80.0); BASOPHILE ABSOLUTE 0.1 Th/cumm (0-0.2); HEMATOCRIT 37.7 % (41.0-60); HEMOGLOBIN 12.6 gm/dL (12-16); LYMPHOCYTE ABSOLUTE 1.4 Th/cmm (1.5-3.0); MEAN CELL VOLUME 83.1 fl (81-100); MEAN CORPUSCULAR HEMOGLOBIN 27.8 pg (27.0-31.0); MEAN CORPUSCULAR HGB CONC 33.5 pg (28.0-36.0); MEAN PLATELET VOLUME 6.1 fl; MONOCYTE ABSOLUTE 0.3 Th/cmm (0.3-1.0); NEUTROPHILE ABSOLUTE 8.5 Th/cmm (1.8-8.0); RED BLOOD COUNT 4.54 Mil/cmm (3.80-5.10); RED CELL DISTRIBUTION WIDTH 30.3 % (11.5-20.0); WHITE BLOOD COUNT 10.3 Th/cmm (4.8-10.8)
[2018-10-21 23:35] LABS: URINE SOURCE FOLEY PORT
[2018-10-21 23:37] LABS: URINE BILIRUBIN NEGATIVE (NEGATIVE); URINE BLOOD MODERATE (NEGATIVE); URINE GLUCOSE (UA) NEGATIVE (NEGATIVE); URINE KETONE NEGATIVE (NEGATIVE); URINE LEUKOCYTE ESTERASE NEGATIVE (NEGATIVE); URINE MICROSCOPIC INDICATED? YES; URINE NITRATE NEGATIVE (NEGATIVE); URINE PROTEIN 30 mg/dL (NEGATIVE); URINE UROBILINOGEN 0.2 E.U./dL (0.2 - 1.0)
[2018-10-21 23:40] LABS: ALB/GLOB RATIO 0.9 (1.0-1.8); ALBUMIN 2.8 gm/dL (3.7-5.3); ALKALINE PHOSPHATASE 192 U/L (34-104); ANION GAP 20.2 (7.0-16.0); BILIRUBIN,TOTAL 0.9 mg/dL (0.3-1.0); BUN - UREA NITROGEN 5 mg/dL (7-25); CALCIUM SERUM 8.6 mg/dL (8.6-10.3); CARBON DIOXIDE 16.4 mEq/L (21.0-31.0); CHLORIDE 100 mEq/L (98-107); CREATININE - SERUM 0.4 mg/dL (0.6-1.2); GFR AFRICAN-AMERICAN > 60.0 ml/min (>90); GFR NON AFRICAN-AMERICAN > 60.0 ml/min; GLUCOSE 112 mg/dL (70-105); POTASSIUM SERUM 3.6 mEq/L (3.5-5.1); SGOT 37 U/L (13-39); SGPT/ALT 48 U/L (7-52); SODIUM SERUM 133 mEq/L (136-145); TOTAL PROTEIN,SERUM 5.9 gm/dL (6.0-8.3)
[2018-10-21 23:42] LABS: PLATELET COUNT 723 Th/cmm (150-400)
[2018-10-21 23:59] LABS: URINE COLOR YELLOW
[2018-10-22] LABS: URINE CLARITY HAZY (CLEAR)
[2018-10-22 00:06] LABS: URINE BACTERIA FEW /hpf (NONE SEEN); URINE EPITHELIAL CELLS MODERATE /lpf (FEW)
--- NOTE | 2018-10-22 09:22 | Diagnostic Imaging Report ---
Exam: CT examination abdomen pelvis. HISTORY: Pain Total DLP equals 434 CTDI equals 8.8 Findings: Multiple contiguous thin section of the abdomen pelvis obtained from lower thorax to the pubic symphysis without the administration of oral or intravenous contrast material, the study correlated with the prior exam of 08/24/2018. The study demonstrates a hepatomegaly. The gallbladder is contracted. The pancreas is intact. The spleen is normal. The kidneys demonstrate no evidence of obstructive uropathy or nephrolithiasis. Bilateral renal cysts appreciated. There is evidence for distention of small bowel loops suggestive of a mild ileus There is evidence for a large pelvic mass measuring 19.8 cm in diameter most likely represent fibroid infiltration, neoplastic component component cannot be excluded. There is evidence for omental nodularity in the left anterior abdomen neoplastic component cannot be excluded. Bejarano catheter is noted in collapsed urinary bladder. No free fluid is noted. IMPRESSION: Essentially unchanged appearance of the large pelvic mass, compared to prior examination of 08/24/2018, neoplastic component cannot be excluded directly visualization recommended. Multiple surrounding lymph nodes.
== END 2018-10-22 01:45 | disposition home or self-care (01) ==
LOC: CANPREER → ER 22:13
DX: C22.9 Malignant neoplasm of liver, not specified as primary or secondary (principal); R10.30 Lower abdominal pain, unspecified; R16.0 Hepatomegaly, not elsewhere classified; Z88.5 Allergy status to narcotic agent
CPT/HCPCS: 36415-UA; 80053-TC; 81001-TC; 81003-TC; 81025-TC; 83605; 85025-TC; 87086-90; Z7610